=== PATIENT | female | born 1985 | race Caucasian/White ===

== ENCOUNTER 2017-05-15 14:37 | Emergency (ER) | payer OTHER ==
[~2017-05-15] VITALS: Ht 165.1 cm; Wt 97.2 kg
[~2017-05-15 14:37] MED LIST: ALBUTEROL SULF8.5 GM IH; ALEVE220 M2 PO; CLINDAMYCIN HC300 MG PO; IBUPROFEN800 MG PO; METHADONE10 MG PO; Methadone PO; Motrin PO; OXAYDO5 MG PO; Proventil,Ventolin H IH; Tylenol Extra Streng PO
[2017-05-15 14:43] VITALS: BP 135/84
[2017-05-15] MEDS ORDERED: BACTRIM,SEPT1 TABLET PO (17:14)
== END 2017-05-15 17:21 | disposition home or self-care (01) ==
LOC: EME 14:37
DX: M25.511 Pain in right shoulder (principal); M54.9 Dorsalgia, unspecified; F17.200 Nicotine dependence, unspecified, uncomplicated
CPT/HCPCS: 73030; 93005; 99281; 99284; J1885